=== PATIENT | female | born 1950 | race Caucasian/White ===

== ENCOUNTER → 2017-12-19 | Outpatient (CLI) | payer MEDICARE ==
[~2017-12-19] MED LIST: ATOR20TA9 PO; CHOL10003 PO; CYCL-259 PO; LOSA50TA6 PO; OXYC1TAB9 PO; VITA100C8 PO; VITA1TAB19 PO
[2017-12-19 15:41] LABS: BASOPHILS # (AUTO) 0.03 x10^3/uL (0-0.1); BASOPHILS % (AUTO) 1 % (0-1); EOSINOPHILS # (AUTO) 0.15 x10^3/uL (0-0.4); EOSINOPHILS % (AUTO) 3 % (1-7); LYMPHOCYTES # (AUTO) 1.44 x10^3/uL (1-3.4); LYMPHOCYTES % (AUTO) 25 % (22-44); MD NO; MEAN CORPUSCULAR HEMOGLOBIN 31.4 pg (27.0-34.8); MEAN CORPUSCULAR HGB CONC 33.4 g/dL (32.4-35.8); MEAN PLATELET VOLUME 8.5 fL (7.4-10.4); MONOCYTES # (AUTO) 0.46 x10^3/uL (0.2-0.8); MONOCYTES % (AUTO) 8 % (2-9); NEUTROPHILS # (AUTO) 3.71 x10^3/uL (1.8-6.8); NEUTROPHILS % (AUTO) 64 % (42-75); PLATELET COUNT 258 x10^3/uL (130-400); RED BLOOD COUNT 4.59 x10^6/uL (3.82-5.3); RED CELL DISTRIBUTION WIDTH 14.3 % (9.6-15.2)
[2017-12-19 15:43] LABS: INTERNATIONAL NORMALIZED RATIO 0.99 (0.93-1.1); PROTHROMBIN TIME 10.2 Seconds (9.6-11.5)
[2017-12-19 15:45] LABS: MICROSCOPIC NOT IND
[2017-12-19 16:10] LABS: ALBUMIN 3.7 g/dL (3.4-5.0); ANION GAP 7 mmol/L (5-15); CALCIUM 8.8 mg/dL (8.5-10.1); CHLORIDE 108 mmol/L (98-107)
[2017-12-19 16:13] LABS: ALANINE AMINOTRANSFERASE 43 U/L (12-78); ALKALINE PHOSPHATASE 84 U/L (45-117); BILIRUBIN,TOTAL 0.6 mg/dL (0.2-1.0); CREATININE 0.81 mg/dL (0.55-1.02); TOTAL PROTEIN 7.1 g/dL (6.4-8.2)
[2017-12-19 16:15] LABS: CULTURE INDICATED? NO
== END ==
LOC: STAR 13:59
PROVIDERS: ATTEND Neurological Surgery
DX: Z01.818 Encounter for other preprocedural examination (principal); S33.110A Subluxation of L1/L2 lumbar vertebra, initial encounter; M51.36 Other intervertebral disc degeneration, lumbar region; X58.XXXA Exposure to other specified factors, initial encounter; Y93.89 Activity, other specified; Y92.89 Other specified places as the place of occurrence of the external cause; Y99.8 Other external cause status
CPT/HCPCS: 36415; 71046; 72110; 80053; 81003; 85025; 85610; 85730; 93005

== ENCOUNTER → 2018-05-16 | Outpatient (CLI) | payer MEDICARE ==
[~2018-05-16] MED LIST changes: +HYDR-879 PO; -LOSA50TA6 PO; +LOSA50TA7 PO; +OXYC-302 PO; +OXYC-432 PO; -OXYC1TAB9 PO
[2018-05-16 13:44] LABS: BASOPHILS # (AUTO) 0.05 x10^3/uL (0-0.1); BASOPHILS % (AUTO) 1 % (0-1); EOSINOPHILS # (AUTO) 0.26 x10^3/uL (0-0.4); EOSINOPHILS % (AUTO) 6 % (1-7); LYMPHOCYTES # (AUTO) 1.43 x10^3/uL (1-3.4); LYMPHOCYTES % (AUTO) 32 % (22-44); MD NO; MEAN CORPUSCULAR HEMOGLOBIN 31.4 pg (27.0-34.8); MEAN CORPUSCULAR HGB CONC 34.4 g/dL (32.4-35.8); MEAN CORPUSCULAR VOLUME 91.2 fL (80-100); MEAN PLATELET VOLUME 9.1 fL (7.4-10.4); MONOCYTES # (AUTO) 0.49 x10^3/uL (0.2-0.8); MONOCYTES % (AUTO) 11 % (2-9); NEUTROPHILS # (AUTO) 2.24 x10^3/uL (1.8-6.8); NEUTROPHILS % (AUTO) 50 % (42-75); PLATELET COUNT 273 x10^3/uL (130-400); RED BLOOD COUNT 4.61 x10^6/uL (3.82-5.3); RED CELL DISTRIBUTION WIDTH 13.3 % (9.6-15.2)
[2018-05-16 13:46] LABS: MICROSCOPIC NOT IND
[2018-05-16 13:50] LABS: CULTURE INDICATED? NO
[2018-05-16 13:54] LABS: INTERNATIONAL NORMALIZED RATIO 1.02 (0.93-1.1); PROTHROMBIN TIME 10.6 Seconds (9.6-11.5)
[2018-05-16 13:55] LABS: ALANINE AMINOTRANSFERASE 37 U/L (12-78); ALBUMIN 3.8 g/dL (3.4-5.0); ANION GAP 6 mmol/L (5-15); CALCIUM 9.2 mg/dL (8.5-10.1); CHLORIDE 108 mmol/L (98-107)
[2018-05-16 13:57] LABS: ALKALINE PHOSPHATASE 113 U/L (45-117); BILIRUBIN,TOTAL 0.4 mg/dL (0.2-1.0); TOTAL PROTEIN 7.3 g/dL (6.4-8.2)
== END | disposition home or self-care (01) ==
LOC: STAR 12:17
PROVIDERS: ATTEND Neurological Surgery
DX: Z01.818 Encounter for other preprocedural examination (principal); M48.02 Spinal stenosis, cervical region; M54.12 Radiculopathy, cervical region; M50.30 Other cervical disc degeneration, unspecified cervical region; Z88.0 Allergy status to penicillin
CPT/HCPCS: 36415; 71046; 80053; 81003; 85025; 85610; 85730; 93005

== ENCOUNTER 2018-07-10 06:48 | Inpatient (IN) | payer MEDICARE ==
[2018-07-07 09:19] LABS: CULTURE INDICATED? NO; MICROSCOPIC NOT IND
[2018-07-07 09:30] LABS: BASOPHILS # (AUTO) 0.06 x10^3/uL (0-0.1); BASOPHILS % (AUTO) 1 % (0-1); EOSINOPHILS # (AUTO) 0.28 x10^3/uL (0-0.4); EOSINOPHILS % (AUTO) 6 % (1-7); LYMPHOCYTES # (AUTO) 1.44 x10^3/uL (1-3.4); LYMPHOCYTES % (AUTO) 31 % (22-44); MD NO; MEAN CORPUSCULAR HEMOGLOBIN 30.8 pg (27.0-34.8); MEAN CORPUSCULAR HGB CONC 33.4 g/dL (32.4-35.8); MEAN CORPUSCULAR VOLUME 92.2 fL (80-100); MEAN PLATELET VOLUME 8.6 fL (7.4-10.4); MONOCYTES # (AUTO) 0.49 x10^3/uL (0.2-0.8); MONOCYTES % (AUTO) 10 % (2-9); NEUTROPHILS # (AUTO) 2.45 x10^3/uL (1.8-6.8); NEUTROPHILS % (AUTO) 52 % (42-75); PLATELET COUNT 249 x10^3/uL (130-400); RED BLOOD COUNT 4.25 x10^6/uL (3.82-5.3); RED CELL DISTRIBUTION WIDTH 14.5 % (9.6-15.2)
[2018-07-07 09:38] LABS: HCT (SEDRATE) 39.2 % (34.6-47.8)
[2018-07-07 10:00] LABS: INTERNATIONAL NORMALIZED RATIO 0.96 (0.93-1.1)
[2018-07-07 13:10] LABS: CHLORIDE 109 mmol/L (98-107)
[2018-07-07 13:26] LABS: ALANINE AMINOTRANSFERASE 36 U/L (12-78); ALBUMIN 3.6 g/dL (3.4-5.0); ALKALINE PHOSPHATASE 107 U/L (45-117); ANION GAP 8 mmol/L (5-15); BILIRUBIN,TOTAL 0.4 mg/dL (0.2-1.0); CREATININE 0.67 mg/dL (0.55-1.02); TOTAL PROTEIN 6.8 g/dL (6.4-8.2)
[~2018-07-10] VITALS: Ht 157.5 cm; Wt 95.0 kg
[~2018-07-10 06:48] MED LIST changes: +FAMO-79 PO; +HYDR-3622 PO; -HYDR-879 PO
[2018-07-10] MEDS ORDERED: BUPIVACAINE/PF 0.5% ONE (06:58)
[2018-07-10] MEDS ORDERED: TRANEXAMIC ACID 100 MG/ML, 10ML ONE (06:58)
[2018-07-10] MEDS ORDERED: VANCOMYCIN 1,000 MG ONE (06:58)
[2018-07-10] MEDS ORDERED: EPINEPHRINE 1 MG/ML, 1ML ONE (06:59)
[2018-07-10] MEDS ORDERED: THROMBIN SPRAY 20,000 UNIT SPRAY TP ONE (06:59)
[2018-07-10] MEDS ORDERED: LACTATED RINGERS 1,000 ML IV SCH (07:54)
[2018-07-10] MEDS ORDERED: VANCOMYCIN PER PHARMACY MC PRN (08:00)
[2018-07-10] MEDS ORDERED: MIDAZOLAM 1 MG/ML, 2ML IV PRN (09:30)
[2018-07-10] MEDS ORDERED: OXYcodone 5 MG/5 ML ORAL.SOL UDC PO PRN (09:30)
[2018-07-10] MEDS ORDERED: VANCOMYCIN 1,500 MG in SODIUM CHLORIDE 0.9% 250 ML IV ONE (09:30)
[2018-07-10] MEDS ORDERED: MEPERIDINE/PF 25MG/0.5ML IVPush PRN (09:30)
[2018-07-10] MEDS ORDERED: ONDANSETRON 2MG/ML, 2ML IVPush PRN ×2 (09:30→14:30)
[2018-07-10] MEDS ORDERED: LABETALOL 5MG/ML, 20ML IV PRN (09:30)
[2018-07-10] MEDS ORDERED: MIDAZOLAM 1 MG/ML, 2ML ONE (09:58)
[2018-07-10] MEDS ORDERED: FENTANYL PF 100 MCG/2ML ONE ×3 (09:58→13:16)
[2018-07-10] MEDS ORDERED: TRANEXAMIC ACID 1,000 MG in SODIUM CHLORIDE 0.9% 100 ML IV ONE (12:00)
[2018-07-10] MEDS ORDERED: HYDROmorphone 2 MG/ML, 1ML ONE ×2 (12:16→13:10)
[2018-07-10] MEDS ORDERED: OXYcodone 5 MG/5 ML ORAL.SOL UDC ONE ×2 (12:16→13:07)
[2018-07-10] MEDS: FENTANYL PF 100 MCG/2ML IV PRN ×4 (12:19→13:29)
[2018-07-10] MEDS: HYDROmorphone 1 MG/ML, 1ML IV PRN ×3 (12:33→13:11)
[2018-07-10] MEDS ORDERED: MORPHINE SULFATE 4 MG/ML, 1ML ONE (14:22)
[2018-07-10] MEDS ORDERED: DIPHENHYDRAMINE 25 MG CAPSULE PO PRN (14:30)
[2018-07-10] MEDS ORDERED: LORazepam 2 MG/ML, 1ML IV PRN (14:30)
[2018-07-10] MEDS ORDERED: SENNA/DOCUSATE TABLET PO PRN (14:30)
[2018-07-10] MEDS ORDERED: MAGNESIUM HYDROXIDE 8%, 30ML UDC PO PRN (14:30)
[2018-07-10] MEDS ORDERED: PROMETHAZINE 25 MG SUPP PR PRN (14:30)
[2018-07-10] MEDS ORDERED: LORazepam 1MG TABLET PO PRN (14:30)
[2018-07-10] MEDS ORDERED: SCOPOLAMINE PATCH, 1.5MG PATCH.TD72 TD SCH (14:30)
[2018-07-10] MEDS ORDERED: ONDANSETRON ODT 4 MG PO PRN (14:30)
[2018-07-10] MEDS ORDERED: ZOLPIDEM 5MG TABLET PO PRN (14:30)
[2018-07-10] MEDS ORDERED: PROMETHAZINE 25 MG/ML, 1ML IM PRN (14:30)
[2018-07-10] MEDS ORDERED: ALUMINUM/MAG/SIMETHICONE 30 ML UDC PO PRN (14:30)
[2018-07-10] MEDS ORDERED: BISACODYL 10 MG SUPP PR PRN (14:30)
[2018-07-10] MEDS ORDERED: morphine SULFATE 10 MG/ML, 1ML IV PRN (14:30)
[2018-07-10] MEDS ORDERED: DEXAMETHASONE 6 MG in SODIUM CHLORIDE 0.9% 50 ML IV PRN (15:00)
[2018-07-10] MEDS ORDERED: KETOROLAC 30 MG/1 ML IV PRN (15:00)
[2018-07-10] MEDS ORDERED: PROPOFOL 10 MG/ML, 20ML ONE (15:24)
[2018-07-10] MEDS ORDERED: LABETALOL 5MG/ML, 20ML ONE (15:24)
[2018-07-10] MEDS ORDERED: CEFAZOLIN 1,000 MG ONE (15:24)
[2018-07-10] MEDS ORDERED: SUCCINYLCHOLINE 20 MG/ML, 10ML ONE (15:24)
[2018-07-10] MEDS ORDERED: EPHEDRINE 50 MG/ML, 1ML ONE (15:24)
[2018-07-10] MEDS ORDERED: KETAMINE 10 MG/ML, 20ML ONE (15:25)
[2018-07-10] MEDS: POTASSIUM CHLORIDE 20 MEQ in D5%-0.45% NACL 1,000 ML IV SCH (15:30)
[2018-07-10] MEDS: CEFAZOLIN PMX 1GM/50ML 50 ML IVPB SCH (18:12)
[2018-07-10] MEDS: OXYcodone IR 5MG TABLET PO PRN ×2 (18:12→21:07)
[2018-07-10] MEDS ORDERED: VANCOMYCIN PMX 1GM/200ML 200 ML IVPB ONE (19:00)
[2018-07-10 20:30] VITALS: BP 102/63
[2018-07-10] MEDS: ASPIRIN 325 MG TABLET EC PO SCH (21:06)
[2018-07-10] MEDS: DOCUSATE 100 MG CAPSULE PO SCH (21:07)
[2018-07-10] MEDS: SODIUM CHLORIDE FLUSH 10ML SYR IVF SCH (21:10)
[2018-07-10] MEDS: ACETAMINOPHEN 500 MG TABLET PO PRN (23:50)
[2018-07-10 23:52] VITALS: BP 121/82
[2018-07-11] MEDS: OXYcodone IR 5MG TABLET PO PRN ×5 (00:04→20:55)
[2018-07-11 02:00] VITALS: BP 121/82
[2018-07-11] MEDS: POTASSIUM CHLORIDE 20 MEQ in D5%-0.45% NACL 1,000 ML IV SCH ×3 (02:38→23:25)
[2018-07-11] MEDS: CEFAZOLIN PMX 1GM/50ML 50 ML IVPB SCH (02:38)
[2018-07-11 04:09] VITALS: BP 101/63
[2018-07-11 05:46] LABS: BASOPHILS # (AUTO) 0.04 x10^3/uL (0-0.1); BASOPHILS % (AUTO) 0 % (0-1); EOSINOPHILS % (AUTO) 0 % (1-7); LYMPHOCYTES # (AUTO) 1.05 x10^3/uL (1-3.4); LYMPHOCYTES % (AUTO) 8 % (22-44); MD NO; MEAN CORPUSCULAR HGB CONC 34.2 g/dL (32.4-35.8); MEAN CORPUSCULAR VOLUME 93.4 fL (80-100); MEAN PLATELET VOLUME 9.1 fL (7.4-10.4); MONOCYTES # (AUTO) 1.05 x10^3/uL (0.2-0.8); MONOCYTES % (AUTO) 8 % (2-9); NEUTROPHILS # (AUTO) 10.98 x10^3/uL (1.8-6.8); NEUTROPHILS % (AUTO) 84 % (42-75); PLATELET COUNT 237 x10^3/uL (130-400); RED BLOOD COUNT 3.44 x10^6/uL (3.82-5.3); RED CELL DISTRIBUTION WIDTH 14.6 % (9.6-15.2)
[2018-07-11 08:02] VITALS: BP 103/64
[2018-07-11] MEDS: DOCUSATE 100 MG CAPSULE PO SCH ×2 (09:00→20:55)
[2018-07-11] MEDS: SODIUM CHLORIDE FLUSH 10ML SYR IVF SCH ×2 (09:00→22:19)
[2018-07-11] MEDS: ASPIRIN 325 MG TABLET EC PO SCH ×2 (09:33→20:55)
[2018-07-11 15:32] VITALS: BP 94/65
[2018-07-11 19:35] VITALS: BP 107/68
[2018-07-11] MEDS: DIAZEPAM 5 MG TABLET PO PRN (22:19)
[2018-07-12 00:24] VITALS: BP 113/77
[2018-07-12] MEDS: OXYcodone IR 5MG TABLET PO PRN ×4 (00:33→11:23)
[2018-07-12] MEDS: ACETAMINOPHEN 500 MG TABLET PO PRN (05:05)
[2018-07-12] MEDS: DIAZEPAM 5 MG TABLET PO PRN ×2 (05:09→12:28)
[2018-07-12] MEDS: ASPIRIN 325 MG TABLET EC PO SCH (07:54)
[2018-07-12] MEDS: SODIUM CHLORIDE FLUSH 10ML SYR IVF SCH (07:55)
[2018-07-12] MEDS: DOCUSATE 100 MG CAPSULE PO SCH (07:55)
[2018-07-12 09:36] VITALS: BP 97/67
[2018-07-12] MEDS: POTASSIUM CHLORIDE 20 MEQ in D5%-0.45% NACL 1,000 ML IV SCH (10:12)
[2018-07-12] MEDS ORDERED: OXYC10TA6 PO (12:12)
[2018-07-12] MEDS ORDERED: DIAZ5TAB4 PO (12:12)
[2018-07-12] MEDS ORDERED: CEPH-368 PO (12:13)
[2018-07-12] MEDS ORDERED: ASPI-650 PO (12:13)
[2018-07-12 12:26] VITALS: BP 103/65
== END 2018-07-12 12:35 | disposition home or self-care (01) | DRG 470 ==
LOC: ORIP 06:48 → 4NOR 13:52
PROVIDERS: ADMIT Orthopaedic Surgery Orthopaedic Surgery of the Spine; ATTEND Orthopaedic Surgery Orthopaedic Surgery of the Spine
PROC: 0SR904A Replacement of Right Hip Joint with Ceramic on Polyethylene Synthetic Substitute, Uncemented, Open Approach (ICD-10-PCS; principal; 2018-07-10 10:00)
DX: M16.11 Unilateral primary osteoarthritis, right hip (principal); I10 Essential (primary) hypertension; E78.5 Hyperlipidemia, unspecified; G47.33 Obstructive sleep apnea (adult) (pediatric); Z88.0 Allergy status to penicillin; Z88.2 Allergy status to sulfonamides
CPT/HCPCS: 36415; 72170; 80053; 81003; 85025; 85610; 85651; 85730; 86850; 86900; 87081; G0378; J0171; J0690; J1170; J1885; J2250; J2405; J2704; J3010; J3370; J3480; J3490; C1776; J0330; J2270; J7050; J7120

== ENCOUNTER 2018-09-05 15:59 | Observation (INO) | payer MEDICARE ==
[~2018-09-05] VITALS: Ht 157.5 cm; Wt 74.4 kg
[~2018-09-05 15:59] MED LIST changes: +ASPI-650 PO; +ATOR20TA37 PO; -ATOR20TA9 PO; +CEPH-368 PO; +DIAZ5TAB4 PO; +OXYC10TA6 PO
[2018-09-05 16:51] LABS: BASOPHILS # (AUTO) 0.09 x10^3/uL (0-0.1); BASOPHILS % (AUTO) 2 % (0-1); EOSINOPHILS # (AUTO) 0.19 x10^3/uL (0-0.4); EOSINOPHILS % (AUTO) 4 % (1-7); LYMPHOCYTES # (AUTO) 1.34 x10^3/uL (1-3.4); LYMPHOCYTES % (AUTO) 27 % (22-44); MD NO; MEAN CORPUSCULAR HEMOGLOBIN 29.6 pg (27.0-34.8); MEAN CORPUSCULAR HGB CONC 33.2 g/dL (32.4-35.8); MEAN CORPUSCULAR VOLUME 89.3 fL (80-100); MEAN PLATELET VOLUME 9.6 fL (7.4-10.4); MONOCYTES # (AUTO) 0.38 x10^3/uL (0.2-0.8); MONOCYTES % (AUTO) 8 % (2-9); NEUTROPHILS # (AUTO) 2.98 x10^3/uL (1.8-6.8); NEUTROPHILS % (AUTO) 60 % (42-75); PLATELET COUNT 267 x10^3/uL (130-400); RED BLOOD COUNT 4.63 x10^6/uL (3.82-5.3); RED CELL DISTRIBUTION WIDTH 14.8 % (9.6-15.2)
[2018-09-05 16:55] LABS: ANION GAP 7 mmol/L (5-15); CALCIUM 9.5 mg/dL (8.5-10.1); CHLORIDE 108 mmol/L (98-107); CREATININE 0.89 mg/dL (0.55-1.02)
--- NOTE | 2018-09-05 16:58 | NUR ---
PT PRESENTS TO ED WITH C/O LEFT SIDED WEAKNESS X 1 WEEK. 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 ALL MONITORS IN PLACE. CT COMPLETE. EKG COMPLETED BY EDT. PT REPORTS SHE HAS HAD A HEADACHE SINCE ARRIVAL TO ED, PT STATES "I DO GET HEADACHES EVERY DAY." CALL LIGHT IN REACH. ALL RESULTS BACK, CHART UP FOR RECHECK. AWAITING MD AND DISPO.
[2018-09-05] MEDS ORDERED: hydrocodone PO (17:06)
[2018-09-05] MEDS ORDERED: CYCL5TAB PO (17:06)
[2018-09-05] MEDS ORDERED: ASPIRIN 325 MG TABLET EC PO ONE (17:30)
[2018-09-05] MEDS ORDERED: ACETAMINOPHEN 325 MG TABLET PO ONE (17:30)
[2018-09-05] MEDS ORDERED: ACETAMINOPHEN 325 MG TABLET ONE (17:39)
[2018-09-05] MEDS ORDERED: ASPIRIN 325 MG TABLET EC ONE (17:39)
--- NOTE | 2018-09-05 18:00 | NUR ---
PT MEDICATED PER EMAR (TYLENOL FOR HEADACHE AND ASA FOR SUSPECTED STROKE). PT TOLERATED WELL. PT A&O, RESPS EVEN AND UNLABORED. PT AMB TO BATHROOM WITH STEADY GAIT, BACK IN BED NOW, ALL MONITORS REATTACHED. NSR ON GROUP WORK PROGRAM DIRECTOR. AT BEDSIDE.
--- NOTE | 2018-09-05 18:01 | NUR ---
PT TO MRI
--- NOTE | 2018-09-05 19:18 | NUR ---
PT BACK FROM MRI, PT A&O, RESPS EVEN AND UNLABORED. PIV PLACED. PT AWAITING TRASNPORT TO ROOM [id number].
[2018-09-05] MEDS ORDERED: ENOXAPARIN 40 MG/0.4 ML SQ SCH (19:30)
[2018-09-05] MEDS ORDERED: ACETAMINOPHEN 325 MG TABLET PO PRN (19:30)
[2018-09-05] MEDS ORDERED: ENALAPRILAT 1.25 MG/ML, 2ML IVPush PRN (19:30)
[2018-09-05] MEDS ORDERED: ONDANSETRON ODT 4 MG PO PRN (19:30)
[2018-09-05] MEDS ORDERED: LIDODERM 5% PATCH TD PRN (19:30)
[2018-09-05] MEDS ORDERED: DOCUSATE 100 MG CAPSULE PO PRN (19:30)
[2018-09-05 19:37] VITALS: BP 142/95
[2018-09-05 20:00] VITALS: BP 149/95
[2018-09-05] MEDS ORDERED: HYDROcodone/APAP 5/325 TABLET PO PRN (20:00)
[2018-09-05] MEDS: HYDROcodone/APAP 5/325 TABLET PO SCH (20:53)
[2018-09-05] MEDS ORDERED: ATORVASTATIN 20 MG TABLET PO SCH (21:00)
[2018-09-05] MEDS ORDERED: LOSARTAN 50MG TABLET PO SCH (21:00)
[2018-09-06 03:27] VITALS: BP 126/88
[2018-09-06 06:43] VITALS: BP 126/86
[2018-09-06] MEDS ORDERED: FAMOTIDINE 20 MG TABLET PO SCH (09:00)
[2018-09-06] MEDS: HYDROcodone/APAP 5/325 TABLET PO SCH (09:30)
[2018-09-06 11:57] LABS: CHOL/HDL RATIO 5.1; LDL/HDL RATIO 2.3 (0.5-3.0)
[2018-09-06] MEDS ORDERED: ATOR40TA78 PO (13:10)
[2018-09-06] MEDS ORDERED: ASPI81TA45 PO (13:10)
[2018-09-06 13:57] VITALS: BP 119/81
[2018-09-06] MEDS ORDERED: ATORVASTATIN 40 MG TABLET PO SCH (21:00)
[2018-09-07] MEDS ORDERED: ASPIRIN 81 MG TABLET EC PO SCH (06:00)
== END 2018-09-06 17:14 | disposition home or self-care (01) ==
LOC: ED 17:21 → EDIP 17:22 → INTOOBSV 17:22 → ED 17:23 → 4EST 19:30
PROVIDERS: ADMIT Hospitalist; ATTEND Internal Medicine
DX: G45.9 Transient cerebral ischemic attack, unspecified (principal); I10 Essential (primary) hypertension; E78.5 Hyperlipidemia, unspecified; E78.00 Pure hypercholesterolemia, unspecified; E66.9 Obesity, unspecified; E16.2 Hypoglycemia, unspecified; J44.9 Chronic obstructive pulmonary disease, unspecified; M16.11 Unilateral primary osteoarthritis, right hip; Z81.8 Family history of other mental and behavioral disorders; Z82.49 Family history of ischemic heart disease and other diseases of the circulatory system; Z96.641 Presence of right artificial hip joint; G47.33 Obstructive sleep apnea (adult) (pediatric)
CPT/HCPCS: 36415; 70450; 70551; 80048; 80061; 82040; 85025; 92523; 93005; 93306; 93880; 96372; 97162; 97166; 97530; 97535; 99284; G0378; G8978; G8979; G8980; J1650

== ENCOUNTER → 2018-11-25 | Outpatient (CLI) | payer MEDICARE ==
[~2018-11-25] MED LIST changes: +ASPI-496 PO; +ASPI-691 PO; +ASPI81TA45 PO; +ATOR40TA78 PO; +CYCL5TAB PO; +HYDR-3307 PO; +LOSA50TA14 PO; -LOSA50TA7 PO; +hydrocodone PO
[2018-11-25 16:16] LABS: MICROSCOPIC NOT IND
[2018-11-25 16:17] LABS: CULTURE INDICATED? NO
[2018-11-25 16:29] LABS: BASOPHILS # (AUTO) 0.06 x10^3/uL (0-0.1); BASOPHILS % (AUTO) 1 % (0-1); EOSINOPHILS # (AUTO) 0.54 x10^3/uL (0-0.4); EOSINOPHILS % (AUTO) 8 % (1-7); LYMPHOCYTES % (AUTO) 22 % (22-44); MD NO; MEAN CORPUSCULAR HEMOGLOBIN 29.6 pg (27.0-34.8); MEAN CORPUSCULAR HGB CONC 33.1 g/dL (32.4-35.8); MEAN CORPUSCULAR VOLUME 89.4 fL (80-100); MEAN PLATELET VOLUME 9.5 fL (7.4-10.4); MONOCYTES # (AUTO) 0.55 x10^3/uL (0.2-0.8); MONOCYTES % (AUTO) 8 % (2-9); NEUTROPHILS # (AUTO) 4.08 x10^3/uL (1.8-6.8); NEUTROPHILS % (AUTO) 61 % (42-75); PLATELET COUNT 263 x10^3/uL (130-400); RED BLOOD COUNT 4.25 x10^6/uL (3.82-5.3); RED CELL DISTRIBUTION WIDTH 16.2 % (9.6-15.2)
[2018-11-25 16:41] LABS: ALANINE AMINOTRANSFERASE 26 U/L (12-78); ALBUMIN 3.6 g/dL (3.4-5.0); ANION GAP 4 mmol/L (5-15); CALCIUM 9.1 mg/dL (8.5-10.1); CHLORIDE 108 mmol/L (98-107); CREATININE 0.81 mg/dL (0.55-1.02)
[2018-11-25 16:43] LABS: ALKALINE PHOSPHATASE 104 U/L (45-117); BILIRUBIN,TOTAL 0.2 mg/dL (0.2-1.0); TOTAL PROTEIN 6.6 g/dL (6.4-8.2)
[2018-11-25 18:12] LABS: INTERNATIONAL NORMALIZED RATIO 0.97 (0.93-1.1); PROTHROMBIN TIME 10.2 Seconds (9.6-11.5)
== END | disposition home or self-care (01) ==
LOC: STAR 15:05
PROVIDERS: ATTEND Neurological Surgery
DX: Z01.818 Encounter for other preprocedural examination (principal); M48.02 Spinal stenosis, cervical region; M54.12 Radiculopathy, cervical region; I10 Essential (primary) hypertension
CPT/HCPCS: 36415; 71046; 80053; 81003; 85025; 85610; 85730; 93005

== ENCOUNTER 2018-12-17 05:38 | Inpatient (IN) | payer MEDICARE ==
[~2018-12-17] VITALS: Ht 157.5 cm; Wt 91.5 kg
[~2018-12-17 05:38] MED LIST changes: +ACETAMINOPHEN 500 MG TABLET PO ONE; +GABAPENTIN 300 MG CAPSULE PO ONE
[2018-12-17] MEDS ORDERED: LACTATED RINGERS 1,000 ML IV SCH (06:03)
[2018-12-17 06:31] VITALS: BP 151/91
[2018-12-17] MEDS ORDERED: BUPIVACAINE/PF 0.5% ONE (06:36)
[2018-12-17] MEDS ORDERED: THROMBIN 20,000 UNIT VIAL TP ONE (06:36)
[2018-12-17] MEDS ORDERED: BACITRACIN 50,000 UNIT ONE (06:37)
[2018-12-17] MEDS ORDERED: EPINEPHRINE 1 MG/ML, 1ML ONE (06:37)
[2018-12-17] MEDS ORDERED: MIDAZOLAM 1 MG/ML, 2ML ONE (06:51)
[2018-12-17] MEDS ORDERED: LIDOCAINE 2%, 6 ML JEL.PF.APP MM ONE (06:53)
[2018-12-17] MEDS ORDERED: FENTANYL PF 250 MCG/5ML ONE (06:53)
[2018-12-17] MEDS ORDERED: ALBUTEROL/IPRATROPIUM 2.5MG/0.5MG, 3 ML NPPB PRN (08:00)
[2018-12-17] MEDS ORDERED: MEPERIDINE/PF 25MG/0.5ML IVPush PRN (08:00)
[2018-12-17] MEDS ORDERED: OXYcodone 5 MG/5 ML ORAL.SOL UDC PO PRN (08:00)
[2018-12-17] MEDS ORDERED: PROMETHAZINE 25 MG/ML, 1ML IV PRN (08:00)
[2018-12-17] MEDS ORDERED: ONDANSETRON 2MG/ML, 2ML IV PRN ×2 (08:00→11:30)
[2018-12-17] MEDS ORDERED: hydrALAzine 20 MG/ML, 1ML IV PRN (08:00)
[2018-12-17] MEDS ORDERED: METOPROLOL 1 MG/ML, 5ML IV PRN (08:00)
[2018-12-17] MEDS ORDERED: MIDAZOLAM 1 MG/ML, 2ML IV PRN (08:00)
[2018-12-17] MEDS ORDERED: ONDANSETRON 2MG/ML, 2ML ONE (08:02)
[2018-12-17] MEDS ORDERED: GLYCOPYRROLATE 0.2MG/1ML, 5ML ONE (08:02)
[2018-12-17] MEDS ORDERED: NEOSTIGMINE 1 MG/ML, 10ML ONE (08:02)
[2018-12-17] MEDS ORDERED: DEXAMETHASONE 4 MG/ML, 1ML ONE (08:02)
[2018-12-17] MEDS ORDERED: PROPOFOL 10 MG/ML, 20ML ONE (08:02)
[2018-12-17] MEDS ORDERED: CEFAZOLIN 1,000 MG ONE (08:02)
[2018-12-17] MEDS ORDERED: ROCURONIUM 10MG/ML,5ML ONE (08:02)
[2018-12-17] MEDS ORDERED: FENTANYL PF 100 MCG/2ML ONE (09:30)
[2018-12-17] MEDS ORDERED: OXYcodone 5 MG/5 ML ORAL.SOL UDC ONE (09:30)
[2018-12-17] MEDS: HYDROmorphone 2 MG/ML, 1ML IVPush PRN ×2 (09:30→09:35)
[2018-12-17] MEDS ORDERED: HYDROmorphone 1 MG/ML, 1ML VIAL ONE (09:30)
[2018-12-17] MEDS: FENTANYL PF 100 MCG/2ML IV PRN ×2 (09:39→09:49)
[2018-12-17] MEDS ORDERED: CYCLOBENZAPRINE 10 MG TABLET ONE (09:43)
[2018-12-17] MEDS ORDERED: CYCLOBENZAPRINE 10 MG TABLET PO ONE (10:00)
[2018-12-17] MEDS: D5%-0.9% NACL+KCL 20MEQ 1,000 ML IV SCH ×2 (11:29→20:25)
[2018-12-17] MEDS ORDERED: HYDROcodone/APAP 10/325 MG TABLET PO PRN (11:30)
[2018-12-17] MEDS ORDERED: BISACODYL 10 MG SUPP PR PRN (11:30)
[2018-12-17] MEDS ORDERED: PROMETHAZINE 25 MG/ML, 1ML IM PRN (11:30)
[2018-12-17] MEDS ORDERED: DIPHENHYDRAMINE 50 MG CAPSULE PO PRN (11:30)
[2018-12-17] MEDS ORDERED: MAGNESIUM HYDROXIDE 8%, 30ML UDC PO PRN (11:30)
[2018-12-17 11:55] VITALS: BP 153/87
[2018-12-17] MEDS: DEXAMETHASONE 4 MG/ML, 1ML IV SCH ×2 (13:18→19:36)
[2018-12-17 13:20] VITALS: BP 173/95
[2018-12-17 13:40] VITALS: BP 148/82
[2018-12-17] MEDS: morphine SULFATE 10 MG/ML, 1ML IV PRN ×2 (15:16→19:09)
[2018-12-17] MEDS: CEFAZOLIN PMX 1GM/50ML 50 ML IVPB SCH (16:59)
[2018-12-17 20:37] VITALS: BP 156/90
[2018-12-17] MEDS ORDERED: ATORVASTATIN 40 MG TABLET PO SCH (21:00)
[2018-12-17] MEDS: OXYcodone/APAP 5/325MG TABLET PO PRN (22:33)
[2018-12-17] MEDS: CYCLOBENZAPRINE 10 MG TABLET PO PRN (22:33)
[2018-12-18 00:01] VITALS: BP 158/87
[2018-12-18] MEDS: CEFAZOLIN PMX 1GM/50ML 50 ML IVPB SCH (01:23)
[2018-12-18] MEDS: DEXAMETHASONE 4 MG/ML, 1ML IV SCH ×2 (01:23→07:54)
[2018-12-18 04:17] VITALS: BP 143/86
[2018-12-18] MEDS: D5%-0.9% NACL+KCL 20MEQ 1,000 ML IV SCH (06:36)
[2018-12-18] MEDS: CYCLOBENZAPRINE 10 MG TABLET PO PRN (06:58)
[2018-12-18] MEDS: OXYcodone/APAP 5/325MG TABLET PO PRN ×2 (06:59→11:01)
[2018-12-18 07:48] VITALS: BP 144/79
[2018-12-18] MEDS ORDERED: LOSARTAN 50MG TABLET PO SCH (09:00)
[2018-12-18] MEDS ORDERED: SENNA/DOCUSATE TABLET PO SCH (09:00)
[2018-12-18] MEDS ORDERED: FAMOTIDINE 20 MG TABLET PO SCH (09:00)
[2018-12-18] MEDS ORDERED: OXYC-302 PO (10:09)
[2018-12-18] MEDS ORDERED: METH4TAB2 PO (10:10)
[2018-12-18] MEDS ORDERED: CYCL5TAB PO (10:12)
[2018-12-18 11:03] VITALS: BP 163/98
== END 2018-12-18 11:36 | disposition home or self-care (01) | DRG 472 ==
LOC: ORIP 05:38 → 4NOR 10:47 → DCLOUNGE 12-18 11:25
PROVIDERS: ADMIT Neurological Surgery; ATTEND Neurological Surgery
PROC: 0RB30ZZ Excision of Cervical Vertebral Disc, Open Approach (ICD-10-PCS; 2018-12-17)
PROC: 01N10ZZ Release Cervical Nerve, Open Approach (ICD-10-PCS; 2018-12-17)
PROC: 0RG20A0 Fusion of 2 or more Cervical Vertebral Joints with Interbody Fusion Device, Anterior Approach, Anterior Column, Open Approach (ICD-10-PCS; principal; 2018-12-17 07:00)
DX: M48.02 Spinal stenosis, cervical region (principal); M50.021 Cervical disc disorder at C4-C5 level with myelopathy; M50.022 Cervical disc disorder at C5-C6 level with myelopathy; M50.023 Cervical disc disorder at C6-C7 level with myelopathy; M47.22 Other spondylosis with radiculopathy, cervical region; I10 Essential (primary) hypertension; F32.9 Major depressive disorder, single episode, unspecified; K58.9 Irritable bowel syndrome, unspecified; M19.90 Unspecified osteoarthritis, unspecified site; F41.9 Anxiety disorder, unspecified; G47.33 Obstructive sleep apnea (adult) (pediatric); E78.5 Hyperlipidemia, unspecified; K21.9 Gastro-esophageal reflux disease without esophagitis; M70.62 Trochanteric bursitis, left hip; M70.61 Trochanteric bursitis, right hip; M16.51 Unilateral post-traumatic osteoarthritis, right hip; Z82.49 Family history of ischemic heart disease and other diseases of the circulatory system; Z88.0 Allergy status to penicillin; Z88.2 Allergy status to sulfonamides; Z81.8 Family history of other mental and behavioral disorders; M50.121 Cervical disc disorder at C4-C5 level with radiculopathy; M50.122 Cervical disc disorder at C5-C6 level with radiculopathy; M50.123 Cervical disc disorder at C6-C7 level with radiculopathy
CPT/HCPCS: 36415; 72040; 86850; 86900; C1713; G0378; J0171; J0690; J1100; J1170; J2250; J2405; J2704; J2710; J3010; J3490; C1762; J2270; J3480; J7120